=== PATIENT | female | born 1975 | race Caucasian/White ===

== ENCOUNTER 2016-08-24 07:43 | Emergency (ER) | payer OTHER ==
[~2016-08-24] VITALS: Ht 162.6 cm; Wt 64.0 kg
[~2016-08-24 07:43] MED LIST: BENZTROPINE MESY2 MG PO; BUPROPION HCL150 M2 PO; DEPAKOTE ER500 MG PO; NORCO 5/325 MG1 TAB PO; PROLIXIN PO; UNKNOWN MEDS; ZYPREXA20 MG PO
[2016-08-24 08:05] VITALS: BP 87/55
--- NOTE | 2016-08-24 08:05 | NUR ---
PATIENT PRESENTS TO ED WITH THROAT PAIN, PAIN UPON SWALLOWING X3 DAYS . PT STATES . DENIES N/V/D; SKIN IS PINK/WARM/DRY; AAOX4 WITH EVEN AND STEADY GAIT; LUNGS CLEAR BL; HR EVEN AND REGULAR; PT DENIES ANY FEVER, CP, SOB, OR COUGH AT THIS TIME; PATIENT STATES PAIN OF 8/10 AT THIS TIME; VSS; PATIENT POSITIONED FOR COMFORT; HOB ELEVATED; BEDRAILS UP X2; BED DOWN. ER MD MADE AWARE OF PT STATUS.
--- NOTE | 2016-08-24 08:13 | NUR ---
Patient ambulated to bed 4. RN evaluating patient at bedside.
[2016-08-24 08:21] VITALS: BP 121/71
--- NOTE | 2016-08-24 08:21 | NUR ---
Patient discharged with v/s stable. Written and verbal after care instructions given and explained. Patient alert, oriented and verbalized understanding of instructions. Ambulatory with steady gait. All questions addressed prior to discharge. ID band removed. Patient advised to follow up with PMD. Rx of TYLENOL/AMOXICILLIN/CHLORASEPTIC given. Patient educated on indication of medication including possible reaction and side effects. Opportunity to ask questions provided and answered.
[2016-10-15] MEDS ORDERED: BACTROBAN 2%20 MG/GM TP (11:29)
[2016-10-15] MEDS ORDERED: PROLIXIN PO (11:29)
[2016-10-15] MEDS ORDERED: A & D OINT45 GM TP (11:29)
[2016-10-15] MEDS ORDERED: HYDROCORTISONE30 GM TP (11:29)
[2016-10-15] MEDS ORDERED: HABITROL T14 MG/24 H TD (11:29)
[2016-10-15] MEDS ORDERED: APLICARE ANTIS118 M2 TP (11:29)
== END 2016-08-24 08:21 | disposition home or self-care (01) ==
LOC: MED 07:43
DX: J02.9 Acute pharyngitis, unspecified (principal); F17.210 Nicotine dependence, cigarettes, uncomplicated; Z79.899 Other long term (current) drug therapy; Z88.8 Allergy status to other drugs, medicaments and biological substances

== ENCOUNTER 2016-10-10 12:10 | Inpatient (IN) | payer OTHER ==
[~2016-10-10] VITALS: Ht 165.1 cm; Wt 63.5 kg
[~2016-10-10 12:10] MED LIST changes: +BENZ2TAB27 PO; -BENZTROPINE MESY2 MG PO; -BUPROPION HCL150 M2 PO; -DEPAKOTE ER500 MG PO; +DIVA500T1 PO; +HYDR-4446 PO; -NORCO 5/325 MG1 TAB PO; +PRO1 PO; -PROLIXIN PO; -UNKNOWN MEDS; -ZYPREXA20 MG PO
--- NOTE | 2016-10-10 12:12 | NUR ---
NIRANJAN DELANEY EVALUATING PT IN TRIAGE ROOM; PT PLACED ON 5150 HOLD BY NIRANJAN DELANEY AT THIS TIME.
[2016-10-10 12:16] VITALS: BP 100/65
--- NOTE | 2016-10-10 12:16 | NUR ---
PT AMBULATED TO BED 3 AT THIS TIME.
[2016-10-10] MEDS ORDERED: NACL 0.9% 1,000 ML IV ONE (12:20)
--- NOTE | 2016-10-10 12:39 | NUR ---
40/f to ed with c/o gen weakness x3 hours s/p being of her psych meds. pt is on hold by [facility], she states she has thoughts of suicide with no plan or attempt. pt denies n/v/d. denies pain. lungs clear bilat. hr even and regular. aaox4. vss. no signs of distress.
[2016-10-10 12:47] LABS: BASOPHILS # (AUTO) 0.3 K/uL (0.00-0.22); BASOPHILS % (AUTO) 4.3 % (0.0-2.0); EOSINOPHILS # (AUTO) 0.2 K/uL (0-0.4); EOSINOPHILS % (AUTO) 2.5 % (0.0-4.0); HEMATOCRIT 38.3 % (36-48); HEMOGLOBIN 13.3 g/dL (12.0-16.0); LYMPHOCYTES % (AUTO) 39.5 % (20.5-51.1); MEAN CORPUSCULAR HEMOGLOBIN 32 pg (27-31); MEAN CORPUSCULAR HGB CONC 35 g/dL (33-37); MEAN CORPUSCULAR VOLUME 93 fL (80-94); MONOCYTES # (AUTO) 0.5 K/uL (0.8-1.0); MONOCYTES % (AUTO) 6.3 % (1.7-9.3); NEUTROPHILS # (AUTO) 3.5 K/uL (1.8-7.7); NEUTROPHILS % (AUTO) 47.4 % (42.2-75.2); PLATELET COUNT (AUTO) 378 K/uL (140-450); RED BLOOD CELL COUNT(AUTO) 4.12 MIL/uL (4.20-5.40); RED CELL DISTRIBUTION WIDTH 12.9 % (11.6-13.7); WHITE BLOOD COUNT (AUTO) 7.5 K/uL (4.8-10.8)
[2016-10-10 12:58] LABS: AMPHETAMINE, URINE POS ng/ml (NEG <=1000); BARBITURATE, URINE NEG ng/ml (NEG <=200); BENZODIAZEPINE, URINE NEG ng/mL (NEG <=200); CANNABINOID, URINE NEG ng/mL (NEG <=50); COCAINE, URINE NEG ng/mL (NEG <=300)
[2016-10-10 12:59] LABS: OPIATE, URINE NEG ng/mL (NEG <=2000); PHENCYCLIDINE SCREEN,URINE NEG ng/mL (NEG <=25)
[2016-10-10 13:04] LABS: ALCOHOL, BLOOD < 3 mg/dL (<3); ANION GAP 9.5 (8-16); CALCIUM 8.2 mg/dL (8.5-10.1); CARBON DIOXIDE 28.4 mmol/L (21-32); CREATININE 0.8 mg/dL (0.6-1.3); POTASSIUM 3.9 mmol/L (3.5-5.1)
[2016-10-10 13:18] LABS: ALBUMIN 3.2 g/dL (3.4-5.0); THYROID STIMULATING HORMONE 0.02 uIU/mL (0.34-3.76); TOTAL BILIRUBIN 0.3 mg/dL (0.0-1.0); TOTAL PROTEIN, SERUM 6.7 g/dL (6.4-8.2)
[2016-10-10 13:34] LABS: ACETAMINOPHEN < 0.5 ug/ml (10-30); SALICYLATE 4.1 mg/dL (2.8-20.0)
--- NOTE | 2016-10-10 14:05 | NUR ---
Patient appears to be resting comfortably in bed. Vital Signs within normal limits. Respirations even and unlabored.
[2016-10-10] MEDS: NACL 0.9% 1,000 ML IV SCH (15:36)
[2016-10-10] MEDS ORDERED: MORPHINE SULFATE 2 MG/ML SYR IVP PRN (15:40)
--- NOTE | 2016-10-10 15:49 | NUR ---
PT REFUSED XRAY
[2016-10-10 16:00] VITALS: BP 117/77
--- NOTE | 2016-10-10 16:11 | NUR ---
Patient appears to be resting comfortably in bed. Vital Signs within normal limits. Respirations even and unlabored.
--- NOTE | 2016-10-10 16:22 | NUR ---
Patient will be admitted to care of DR HALL. Admited to TELE. Will go to room 122B. Belongings list completed. Report to ANISH SOLER.
[2016-10-10 16:55] LABS: INR 1.2 (0.8-1.2); PARTIAL THROMBOPLASTIN TIME 29.4 secs (22-35.6); PROTHROMBIN TIME 10.9 secs (10.8-13.4)
[2016-10-10 16:57] LABS: CHOL/HDL RATIO 3.9 (1-4.5); FREE T4 (FREE THYROXINE) 0.91 ng/dL (0.76-1.46); PHOSPHORUS 3.3 mg/dL (2.5-4.9)
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
--- NOTE | 2016-10-10 17:50 | NUR ---
PATIENT SEEN BY DR. AGGARWAL AT PT BEDSIDE. PT DENIES DISCOMFORT OR FEELINGS OF HURTING HERSELF OR OTHERS. WILL CONTINUE TO MONITOR.
--- NOTE | 2016-10-10 19:30 | NUR ---
ENDORSED PLAN OF CARE TO ANISH FARRELL AT PT BEDSIDE. PT WAS RESTING, EASILY AWOKE TO NAME, AGITATED AT THIS TIME, SITTER AT BEDSIDE. NO S/S OF ACUTE DISTRESS NOTED.
--- NOTE | 2016-10-10 19:30 | NUR ---
RECEIVED REPORT FROM MORNING NURSE AT BEDSIDE. PT IS AAOX4, NO SUICIDAL THOUGHT AT THIS TIME, BUT AGITATED, STILL REFUSED CHEST X-RAY AT THIS TIME, DENIES PAIN, NO S/S OF SOB/DISTRESS, CLEAR LUNG SOUNDS, ON ROOM AIR, SR ON MONITOR, REGULAR HR, SOFT ABDOMEN WITH ACTIVE BOWEL SOUNDS, IV TO RIGHT AC 20G RUNNING NS AT 50ML/HR, CONTINENT WITH B&B'S, AFEBRILE, SKIN INTACT, WARM AND DRY TO TOUCH, ABLE TO AMBULATE WITH STEADY GAIT, REVIEWED PLAN OF CARE WITH PT, PT VERBALIZED UNDERSTANDING. ALL SAFETY PRECAUTIONS MAINTAINED, CALL LIGHT WITHIN REACH. WILL CONTINUE TO MONITOR.
[2016-10-10 20:00] VITALS: BP 105/65
[2016-10-10] MEDS: DIVALPROEX 500 MG TABEC PO SCH (20:33)
[2016-10-10] MEDS: BENZTROPINE 1 MG TAB PO SCH (20:34)
[2016-10-10] MEDS: DOCUSATE SODIUM 100 MG GELCAP PO SCH (20:34)
[2016-10-10] MEDS: HYDROcodone/APAP 7.5/325 MG 1 TAB PO PRN (20:34)
--- NOTE | 2016-10-10 23:50 | NUR ---
REPORT GIVEN TO ANISH WELCH FOR CONTINUE OF CARE, PT IS IN STABLE CONDITION AT THIS TIME.
--- NOTE | 2016-10-11 | NUR ---
RECEIVED REPORT FROM ANISH ROSE. PT SLEEPING. PT AGITATED AND REFUSES TO HAVE VITAL SIGN TAKEN UPON WAKING UP, STATING "NO, IT'S KIND OF RUDE TO DO THAT AT 12AM." CONDITION STABLE, NO S/S OF ACUTE DISTRESS. UNABLE TO ASSESS FURTHER DUE TO PT'S REFUSAL AND AGITATION. IV ACCESS ASYMPTOMATIC, PATENT AND INTACT. ALL NEEDS MET. SAFETY MEASURES ENSURED. 1:1 SITTER WITH CLOSE MONITORING AT BEDSIDE. CALL LIGHT WITHIN REACH. WILL CONTINUE TO MONITOR.
--- NOTE | 2016-10-11 01:45 | NUR ---
PT ABLE TO AMBULATE TO THE RESTROOM INDEPENDENTLY. CONDITION STABLE. IVF INFUSING WELL. 1:1 SITTER WITH CLOSE MONITORING. SAFETY MEASURES ENSURED.
--- NOTE | 2016-10-11 02:36 | NUR ---
PT REQUESTING TO TURN OFF IV PUMP. IV SALINE LOCKED. 1:1 SITTER WITH CLOSE MONITORING MAINTAINED. SAFETY MEASURES ENSURED.
--- NOTE | 2016-10-11 04:00 | NUR ---
PT REFUSED VITAL SIGNS DESPITE EDUCATION. CONDITION STABLE. ALL NEEDS MET. 1:1 SITTER WITH CLOSE MONITORING MAINTAINED. SAFETY MEASURES ENSURED. CALL LIGHT WITHIN REACH. WILL CONTINUE TO MONITOR.
--- NOTE | 2016-10-11 06:02 | NUR ---
PT REQUESTING TO SHOWER, TOLD PT THAT MD WILL BE ASKED IN 40 MINS WHEN THEY COME IN THE MORNING. OFFERED SPONGE BATH WITH TOWELS, PT REFUSED. PT REFUSING BLOOD DRAWS DESPITE EDUCATION, STATING "YOU ALREADY GOT TOO MUCH BLOOD FROM ME. I REFUSE." PT REFUSING CXR DESPITE EDUCATION, STATING "NO. WHY CAN'T I GET WHAT I WANT." WILL FOLLOW UP AFTER ASKING PERMISSION FROM MD TO SHOWER. CONDITION STABLE. 1:1 SITTER WITH CLOSE MONITORING ENSURED. CALL LIGHT WITHIN REACH. WILL CONTINUE TO MONITOR.
--- NOTE | 2016-10-11 07:05 | NUR ---
RECEIVED PATIENT REPORT AT BEDSIDE. PATIENT AWAKE, ALERT AND ORIENTED. NO S/S OF DISTRESS NOTED. PATIENT ON ROOM AIR. NO C/O PAIN AT THIS TIME. PATIENT CALM AND COLLECTED. PATIENT ON TELE MONITORING WITH 1:1 SITTER. BED LOWERED WITH CALL LIGHT WITHIN REACH. WILL CONTINUE TO MONITOR
--- NOTE | 2016-10-11 07:39 | NUR ---
ENDORSED PLAN OF CARE TO AM NURSE. CONDITION STABLE.
[2016-10-11 08:00] VITALS: BP 89/54
--- NOTE | 2016-10-11 08:24 | NUR ---
PATIENT HAS BEEN SCREENED AND CATEGORIZED LOW NUTRITION RISK. PATIENT WILL BE SEEN WITHIN 7 DAYS OF ADMISSION. 10/17/[address]
[2016-10-11] MEDS: DOCUSATE SODIUM 100 MG GELCAP PO SCH ×2 (09:00→20:28)
[2016-10-11] MEDS: BENZTROPINE 1 MG TAB PO SCH ×2 (09:00→20:28)
[2016-10-11] MEDS: PANTOPRAZOLE 40 MG INJ VIAL IVP SCH (09:00)
--- NOTE | 2016-10-11 09:00 | NUR ---
ADMINISTERED DUE MEDS. PATIENT CALM AND COMPLIANT. NO S/S OF DISTRESS NOTED. PT WITH 1:1 SITTER
[2016-10-11] MEDS: DIVALPROEX 500 MG TABEC PO SCH ×2 (09:01→20:28)
[2016-10-11] MEDS: NICOTINE TRANSD SYS 14 MG/24 HR PATCH TD SCH (09:01)
--- NOTE | 2016-10-11 10:44 | NUR ---
PATIENT CALMLY RESTING IN BED. NO S/S OF DISTRESS NOTED. PT WITH 1:1 SITTER
[2016-10-11] MEDS: ACETAMINOPHEN 325 MG TAB PO PRN ×2 (10:58→16:37)
[2016-10-11] MEDS: NACL 0.9% 1,000 ML IV SCH (11:36)
[2016-10-11 12:00] VITALS: BP 97/61
[2016-10-11 16:00] VITALS: BP 108/68
--- NOTE | 2016-10-11 17:12 | NUR ---
PATIENT SEEN BY DR RIVERS. DR EXAMINED PATIENT'S VAGINAL CUT. ALSO PARKER OF PATIENT'S C/O ANXIETY. TO PUT ORDERS
[2016-10-11] MEDS: LORazepam 1 MG TAB PO PRN (18:18)
--- NOTE | 2016-10-11 19:15 | NUR ---
RECEIVED REPORT FROM ANISH JO AT BEDSIDE. INITIAL ASSESSMENT COMPLETED. PT AAOX4. PT LAYING IN BED WITH 1:1 SITTER. PT AMBULATES. PT 'S SKIN IS INTACT. PT HAS IV ON RIGHT AC G 20 INFUSING FLUIDS WELL. ORIENTED PT TO ROOM AND SURROUNDINGS AND USE OF CALL LIGHT. EXPLAINED PLAN OF CARE TO PT AND SHE VERBALIZES UNDERSTANDING. WILL CONTINUE TO MONITOR PT.
--- NOTE | 2016-10-11 19:23 | NUR ---
ENDORSED CONTINUITY OF CARE TO THE NIGHT NURSE. PATIENT ENDORSED IN STABLE CONDITION
[2016-10-11 20:00] VITALS: BP 105/81
--- NOTE | 2016-10-11 20:25 | NUR ---
PT COMPLAINING OF GENERALIZED PAIN 10/25. VS STABLE, WILL MEDICATE ORDERED.
[2016-10-11] MEDS: HYDROcodone/APAP 7.5/325 MG 1 TAB PO PRN (20:28)
--- NOTE | 2016-10-11 20:32 | NUR ---
PT TOLERATED 2100 MEDS WELL. CALL LIGHT WITHIN REACH.
--- NOTE | 2016-10-11 20:40 | NUR ---
FORMS BUILDER AT BEDSIDE TO DRAW LABS. PT REFUSES BLOOD DRAWS.
--- NOTE | 2016-10-11 21:40 | NUR ---
DR. DOUGLAS AWARE OF PT REFUSING BLOOD DRAWS.
--- NOTE | 2016-10-12 00:05 | NUR ---
PT REFUSED TO HAVE VITAL SIGNS CHECKED. SHE STATED SHE WANTED TO BE LEFT ALONE. WILL CONTINUE TO MONITOR PT.
--- NOTE | 2016-10-12 02:30 | NUR ---
URINE COLLECTED AND SENT TO LAB.
[2016-10-12] MEDS: NACL 0.9% 1,000 ML IV SCH (03:02)
[2016-10-12 03:35] LABS: APPEARANCE,URINE CLEAR (CLEAR); BILIRUBIN,URINE NEGATIVE (NEGATIVE); BLOOD, URINE NEGATIVE (NEGATIVE); COLOR,URINE YELLOW (YELLOW); LEUKOCYTE ESTERASE ,URINE NEGATIVE (NEGATIVE); NITRITE, URINE NEGATIVE (NEGATIVE); PROTEIN,URINE NEGATIVE (NEGATIVE); UGLUCOSE NEGATIVE (NEGATIVE); UROBILINOGEN,URINE 0.2 EU/dL (0.2 - 1)
--- NOTE | 2016-10-12 03:39 | NUR ---
PT SLEEPING; NO SIGNS OF DISTRESS/DISCOMFORT NOTED. PT HAS 1:1 SITTER.
[2016-10-12 03:53] LABS: BACTERIA,URINE OCCASSIONAL /HPF (None Seen); RBC,URINE 0-5 (RARE) /HPF (0-5); WBC,URINE 0-5 (RARE) /HPF (0-5)
--- NOTE | 2016-10-12 04:19 | NUR ---
PT STATED THAT SHE DID NOT WANT TO HAVE THE IV IN ANYMORE; I TOLD HER THAT IF SHE NEEDS TO HAVE IV ACCESS LONG SHE IS IN THE HOSPITAL. PT REFUSED AND SHE PULLED OUT IV WITH TIP INTACT. SHE STATED THAT SHE DID NOT WANT IT ANYMORE.
--- NOTE | 2016-10-12 04:35 | NUR ---
PT REFUSED TO HAVE 0400 VITAL SIGNS CHECKED. WILL CONTINUE TO MONITOR PT.
--- NOTE | 2016-10-12 07:10 | NUR ---
RECEIVED PATIENT REPORT AT BEDSIDE. PATIENT ASLEEP BUT EASILY AROUSABLE. NO S/S OF DISTRESS NOTED. NO IV LINE IN PLACE. PATIENT WITH 1:1 SITTER. PATIENT ON TELE MONITORING. BED LOWERED WITH CALL LIGHT WITHIN REACH. WILL CONTINUE TO MONITOR
[2016-10-12 08:00] VITALS: BP 89/54
[2016-10-12] MEDS: BENZTROPINE 1 MG TAB PO SCH ×2 (08:10→21:22)
[2016-10-12] MEDS: DIVALPROEX 500 MG TABEC PO SCH ×2 (08:10→21:22)
[2016-10-12] MEDS: NICOTINE TRANSD SYS 14 MG/24 HR PATCH TD SCH (08:11)
[2016-10-12] MEDS: DOCUSATE SODIUM 100 MG GELCAP PO SCH ×2 (08:12→21:22)
[2016-10-12] MEDS: PANTOPRAZOLE 40 MG INJ VIAL IVP SCH (08:22)
[2016-10-12] MEDS: VITAMIN A/VITAMIN D OINT 113 GM TUBE TP SCH (08:25)
--- NOTE | 2016-10-12 09:00 | NUR ---
ADMINISTERED DUE MEDS. PATIENT CALM AND COMPLIANT. NO S/S OF DISTRESS NOTED
[2016-10-12] MEDS: CHLORHEXADINE GLUC 2% CLOTH TP SCH (10:20)
[2016-10-12] MEDS: ACETAMINOPHEN 325 MG TAB PO PRN (12:29)
--- NOTE | 2016-10-12 14:53 | NUR ---
PATIENT READING A BOOK IN BED. PATIENT CALM. NO S/S OF DISTRESS NOTED. PATIENT WITH 1:1 SITTER
[2016-10-12 16:00] VITALS: BP 105/67
[2016-10-12] MEDS: LORazepam 1 MG TAB PO PRN (16:16)
--- NOTE | 2016-10-12 19:10 | NUR ---
RECEIVED REPORT FROM ANISH JO AT BEDSIDE. INITIAL ASSESSMENT COMPLETED. PT AAOX4. PT LAYING IN BED WITH 1:1 SITTER. PT AMBULATES. PT 'S SKIN IS INTACT. PT REFUSES TO HAVE IV ACCESS. ORIENTED PT TO ROOM AND SURROUNDINGS AND USE OF CALL LIGHT. EXPLAINED PLAN OF CARE TO PT AND SHE VERBALIZES UNDERSTANDING. WILL CONTINUE TO MONITOR PT.
--- NOTE | 2016-10-12 19:15 | NUR ---
PATIENT REPORT GIVEN AT BEDSIDE. PATIENT ENDORSED IN STABLE CONDITION
[2016-10-12 20:00] VITALS: BP 112/68
[2016-10-12] MEDS: MUPIROCIN 2% OINT 22 GM TUBE TP SCH (21:21)
--- NOTE | 2016-10-12 21:25 | NUR ---
PT TOLERATED 2100 MEDS WELL.
--- NOTE | 2016-10-12 23:52 | NUR ---
PT SLEEPING AT THIS TIME. PT REFUSED TO HAVE VS CHECKED. WITNESSED BY ARIANNA. WILL CONTINUE TO MONITOR PT.
--- NOTE | 2016-10-13 01:15 | NUR ---
PT SLEEPING AT THIS TIME. NO SIGNS OF DISTRESS NOTED. WILL CONTINUE TO MONITOR PT.
--- NOTE | 2016-10-13 03:10 | NUR ---
PT WANTS TO SLEEP AND STATED THAT SHE DOES NOT WANT TO BE BOTHERED. SHE STATED "LEAVE ME ALONE".
[2016-10-13] MEDS: NACL 0.9% 1,000 ML IV SCH ×2 (03:36→23:36)
[2016-10-13 04:00] VITALS: BP 110/68
--- NOTE | 2016-10-13 04:47 | NUR ---
PT AMBULATED TO THE RESTROOM. PT BACK IN BED NOW. WILL CONTINUE TO MONITOR PT.
--- NOTE | 2016-10-13 06:14 | NUR ---
PT STATED THAT SHE WANTS TO SLEEP. SHE TOLD STAFF TO BE QUIET. WILL CONTINUE TO MONITOR PT.
--- NOTE | 2016-10-13 07:38 | NUR ---
ENDORSED PLAN OF CARE TO DAY SHIFT NURSE. PT IN STABLE CONDITION.
--- NOTE | 2016-10-13 07:39 | NUR ---
PT AWAKE AND ALERT, NO SIGNS OF ACUTE DISTRESS, BREATHING EVEN AND UNLABORED BILATERALLY, BOWEL SOUNDS ACTIVE IN ALL 4 QUADRANTS, SKIN INTACT, AMBULATORY WITH BRP, CONTINENT TO BOWEL AND BLADDER, PT DENIES PAIN AT THIS TIME, NO IV ACCESS AT THIS TIME DUE TO PATIENT REFUSAL, BED IN LOW POSITION WITH BILATERAL HALF SIDE RAILS UP, CALL LIGHT WITHIN REACH. ORIENTED TO UNIT AND HOSPITAL, PT VERBALIZED UNDERSTANDING.
[2016-10-13 08:00] VITALS: BP 102/62
[2016-10-13] MEDS: NICOTINE TRANSD SYS 14 MG/24 HR PATCH TD SCH (08:32)
[2016-10-13] MEDS: DIVALPROEX 500 MG TABEC PO SCH ×2 (08:33→20:20)
[2016-10-13] MEDS: BENZTROPINE 1 MG TAB PO SCH ×2 (08:33→20:20)
[2016-10-13] MEDS: DOCUSATE SODIUM 100 MG GELCAP PO SCH ×2 (08:33→20:21)
[2016-10-13] MEDS: PANTOPRAZOLE 40 MG INJ VIAL IVP SCH (08:36)
[2016-10-13] MEDS: VITAMIN A/VITAMIN D OINT 113 GM TUBE TP SCH (10:47)
[2016-10-13] MEDS: MUPIROCIN 2% OINT 22 GM TUBE TP SCH ×2 (10:48→21:08)
[2016-10-13] MEDS: CHLORHEXADINE GLUC 2% CLOTH TP SCH (10:48)
[2016-10-13 12:00] VITALS: BP 98/67
--- NOTE | 2016-10-13 12:32 | NUR ---
NEW AM LAB ORDERS RECEIVED, NOTED, WILL CARRY OUT.
[2016-10-13] MEDS: ACETAMINOPHEN 325 MG TAB PO PRN ×2 (14:10→20:21)
[2016-10-13] MEDS: ONDANSETRON 4 MG/2 ML VIAL IVP PRN ×2 (14:36→19:03)
[2016-10-13 16:00] VITALS: BP 103/74
--- NOTE | 2016-10-13 19:30 | NUR ---
PT AWAKE AND ALERT, NO SIGNS OF ACUTE DISTRESS. BED IN LOW POSITION WITH CALL LIGHT WITHIN REACH. GAVE REPORT TO AFRICAN STUDIES PROFESSOR NURSE FOR CONTINUITY OF CARE.
--- NOTE | 2016-10-13 19:31 | NUR ---
RECEIVED REPORT FROM DAY RN FOR CONTINUITY OF CARE. PATIENT IS A&OX4, DISCUSSED PLAN OF CARE WITH PATIENT, ABLE TO VERBALIZE UNDERSTANDING. SHIFT ASSESSMENT DONE, VS TAKEN, STABLE. PATIENT STATES HEADACHE, WILL MEDICATE ORDERED. NO S/S OF RESPIRATORY DISTRESS NOTED. IV TO RT FA PATENT AND FLUSHED. SAFETY PRECAUTIONS ENFORCED, 1:1 SITTER AT BEDSIDE. WILL CONTINUE TO MONITOR.
[2016-10-13 20:00] VITALS: BP 118/42
[2016-10-13] MEDS: LORazepam 1 MG TAB PO PRN (21:08)
[2016-10-13] MEDS: HYDROcodone/APAP 7.5/325 MG 1 TAB PO PRN (21:53)
--- NOTE | 2016-10-13 21:53 | NUR ---
PT C/O HEADACHE UNRELIEVED BY PREVIOUS MEDICATIONS, MEDICATED PER MD ORDER. WILL CONTINUE TO MONITOR.
[2016-10-14] VITALS: BP 96/71
[2016-10-14] MEDS: ONDANSETRON 4 MG/2 ML VIAL IVP PRN ×2 (00:08→10:16)
--- NOTE | 2016-10-14 00:08 | NUR ---
VS TAKEN, STABLE. PT C/O FEELING NAUSEOUS MEDICATED PER MD ORDER. WILL CONTINUE TO MONITOR.
--- NOTE | 2016-10-14 02:05 | NUR ---
PATIENT RESTING IN BED AT THIS TIME, NO S/S OF DISTRESS NOTED. 1:1 SITTER ENFORCED. WILL CONTINUE TO MONITOR.
[2016-10-14 04:00] VITALS: BP 110/70
--- NOTE | 2016-10-14 04:00 | NUR ---
VS TAKEN, STABLE. 1:1 SITTER ENFORCED. WILL CONTINUE TO MONITOR.
--- NOTE | 2016-10-14 06:00 | NUR ---
PROVIDED PATIENT WITH SNACK. PATIENT AMBULATING IN ROOM. 1:1 SITTER ENFORCED.
[2016-10-14 06:19] LABS: BASOPHILS # (AUTO) 0.3 K/uL (0.00-0.22); BASOPHILS % (AUTO) 4.3 % (0.0-2.0); EOSINOPHILS # (AUTO) 0.3 K/uL (0-0.4); EOSINOPHILS % (AUTO) 4.8 % (0.0-4.0); LYMPHOCYTES # (AUTO) 3.5 K/uL (2.5-16.5); MEAN CORPUSCULAR HEMOGLOBIN 33 pg (27-31); MEAN CORPUSCULAR HGB CONC 34 g/dL (33-37); MEAN CORPUSCULAR VOLUME 95 fL (80-94); MONOCYTES # (AUTO) 0.6 K/uL (0.8-1.0); MONOCYTES % (AUTO) 8.8 % (1.7-9.3); NEUTROPHILS # (AUTO) 2.6 K/uL (1.8-7.7); NEUTROPHILS % (AUTO) 35.1 % (42.2-75.2); PLATELET COUNT (AUTO) 335 K/uL (140-450); RED BLOOD CELL COUNT(AUTO) 3.99 MIL/uL (4.20-5.40); WHITE BLOOD COUNT (AUTO) 7.3 K/uL (4.8-10.8)
[2016-10-14 06:31] LABS: MAGNESIUM 1.8 mg/dL (1.8-2.4); PHOSPHORUS 4.4 mg/dL (2.5-4.9)
[2016-10-14 06:38] LABS: ANION GAP 13.8 (8-16); CALCIUM 8.4 mg/dL (8.5-10.1); CARBON DIOXIDE 26.6 mmol/L (21-32); CREATININE 0.9 mg/dL (0.6-1.3); POTASSIUM 4.4 mmol/L (3.5-5.1)
--- NOTE | 2016-10-14 07:20 | NUR ---
ENDORSED PATIENT TO DAY RN FOR CONTINUITY OF CARE, IN STABLE CONDITION.
--- NOTE | 2016-10-14 07:21 | NUR ---
PT AWAKE AND ALERT, NO SIGNS OF ACUTE DISTRESS. BREATHING EVEN AND UNLABORED BILATERALLY, PT ON ROOM AIR. BOWEL SOUNDS ACTIVE IN ALL 4 QUADRANTS. SKIN INTACT. AMBULATORY WITH BRP. BOWEL AND BLADDER CONTINENT. PT DENIES PAIN. BED IN LOW POSITION WITH BILATERAL HALF SIDE RAILS UP, CALL LIGHT WITHIN REACH. REORIENTED TO UNIT AND HOSPITAL, PT VERBALIZED UNDERSTANDING.
[2016-10-14 07:47] VITALS: BP 104/61
[2016-10-14] MEDS: DIVALPROEX 500 MG TABEC PO SCH ×2 (08:27→20:51)
[2016-10-14] MEDS: BENZTROPINE 1 MG TAB PO SCH ×2 (08:27→20:50)
[2016-10-14] MEDS: NICOTINE TRANSD SYS 14 MG/24 HR PATCH TD SCH (08:27)
[2016-10-14] MEDS: PANTOPRAZOLE 40 MG INJ VIAL IVP SCH (08:28)
[2016-10-14] MEDS: VITAMIN A/VITAMIN D OINT 113 GM TUBE TP SCH (08:28)
[2016-10-14] MEDS: DOCUSATE SODIUM 100 MG GELCAP PO SCH ×2 (08:28→20:50)
[2016-10-14] MEDS: MUPIROCIN 2% OINT 22 GM TUBE TP SCH ×2 (08:29→21:00)
[2016-10-14] MEDS: HYDROcodone/APAP 7.5/325 MG 1 TAB PO PRN ×2 (10:16→20:50)
[2016-10-14] MEDS: CHLORHEXADINE GLUC 2% CLOTH TP SCH (10:17)
[2016-10-14 12:00] VITALS: BP 94/60
--- NOTE | 2016-10-14 14:00 | NUR ---
PATIENT SEEN BY ANTONIO OCONNELL, CASE MANAGEMENT.
--- NOTE | 2016-10-14 15:21 | NUR ---
PT REQUESTING A TEST, EVEN THOUGH I INFORMED HER OF NEGATIVE TEST SHE HAD IN THE ER. PT ALSO COMPLAINING OF NAUSEA, AFTER ZOFRAN IS GIVEN SHE CLAIMS TO FEEL BETTER, BUT THEN SOON AFTER WILL CLAIM THAT IT DOESN'T WORK. PT ALSO INQUIRING ABOUT PLACEMENT AND DISCHARGE, I SPOKE WITH DR PARRY AND THEN INFORMED HER THAT DR LAO'S GROUP SHOULD BE COMING BY FOR A CONSULT SOON. PT VERBALIZED UNDERSTANDING.
[2016-10-14 16:00] VITALS: BP 91/59
--- NOTE | 2016-10-14 16:00 | NUR ---
PATIENT SEEN BY DR AGGARWAL'S GROUP, NO LONGER MEETS 5150 CRITERIA, ONCE MEDICALLY CLEARED OK TO DISCHARGE, NOTED AND WILL CARRY OUT.
--- NOTE | 2016-10-14 16:15 | NUR ---
PATIENT WAS SEEN BY DR PARRY, WILL ORDER NEW NAUSEA MEDICATION PATIENT C/O ZOFRAN NOT WORKING AND NEW MEDICATION TO HELP WITH INTERMITTENT HEADACHE PT C/O NORCO NOT WORKING. PER DR PARRY PT WILL PROBABLY BE DISCHARGED TOMORROW TO [facility], . ROLLER COASTER OPERATOR IS AVAILABLE UP UNTIL 1600.
[2016-10-14] MEDS ORDERED: METOCLOPRAMIDE 10 MG/2 ML INJ VIAL IVP PRN (16:35)
--- NOTE | 2016-10-14 16:36 | NUR ---
RECEIVED NEW LAB AND MEDICATION ORDERS FROM DR PARRY, NOTED AND WILL CARRY OUT.
--- NOTE | 2016-10-14 19:30 | NUR ---
RECD. RESTING IN BED, AWAKE, A/OX3. RESPIRATION EVEN AND UNLABORED. WATCHING TV. IV OF SALINE LOCK AT THE RIGHT WRIST G 24, PATENT AND INTACT. PLAN OF CARE FOR THE SHIFT DISCUSSED. VERBALIZED UNDERSTANDING. DENIES PAIN 0/10.
[2016-10-14] MEDS: NACL 0.9% 1,000 ML IV SCH (19:36)
[2016-10-14 20:00] VITALS: BP 99/65
--- NOTE | 2016-10-14 20:00 | NUR ---
Patient's Plan of Care was discussed and reviewed with UNIFIED COMMUNICATIONS ARCHITECT: AYO BOYD
[2016-10-14] MEDS: HYDROCORTISONE 0.5% CRM 30 GM TUBE TP SCH (20:52)
--- NOTE | 2016-10-14 21:35 | NUR ---
REFUSED IV FLUIDS, STATED IRRITATING TO HER ARM.
--- NOTE | 2016-10-14 21:45 | NUR ---
TRANSFERRED TO ROOM 116.
[2016-10-14] MEDS: LORazepam 1 MG TAB PO PRN (22:25)
[2016-10-14] MEDS: ACETAMINOPHEN 325 MG TAB PO PRN (22:25)
--- NOTE | 2016-10-14 22:25 | NUR ---
WITH ANXIETY, MEDICATED WITH ATIVAN PO ORDERED.
--- NOTE | 2016-10-14 23:25 | NUR ---
NO ANXIETY NOTED, SLEEPING COMFORTABLY IN BED.
[2016-10-15] VITALS: BP 90/58
--- NOTE | 2016-10-15 03:30 | NUR ---
EAT HER HUMMUS AND CRACKERS WITH ORANGE JUICE FOR SNACK. ADVISED TO GO BACK TO SLEEP AFTER EATING.
[2016-10-15 03:47] VITALS: BP 93/66
--- NOTE | 2016-10-15 04:00 | NUR ---
NICOTINE PATCH IN THE ARM MISSING, STATED THAT IT FALL OFF.
--- NOTE | 2016-10-15 05:15 | NUR ---
REFUSED BLOOD DRAW REPORTED BY CNC OPERATOR PROGRAMMER.
[2016-10-15] MEDS: NICOTINE TRANSD SYS 14 MG/24 HR PATCH TD SCH (06:02)
--- NOTE | 2016-10-15 06:02 | NUR ---
VERY RESTLESS, WALKING AROUND. WANTS HER NICOTINE PATCH, GETS ANGRY WHEN TOLD IT IS NOT YET TIME FOR HER TO HAVE IT. CHARGE NURSE LORENA JAUREGUI, NICOTINE PATCH PLACED ON RIGHT UPPER ARM.
--- NOTE | 2016-10-15 06:38 | NUR ---
RESTING IN BED COMFORTABLY. CONDITION REMAIN STABLE. WILL ENDORSE TO AM NURSE FOR CONTINUITY OF CARE.
--- NOTE | 2016-10-15 07:25 | NUR ---
ENDORSED TO ANISH CALVO FOR CONTINUITY OF CARE.
--- NOTE | 2016-10-15 07:30 | NUR ---
REPORT RECEIVED FROM HOG SCALDER, PT WALKING AROUND IN ROOM, RESP EVEN UNLABORED ON ROOM AIR, , PLAN OF CARE REVIEWED, PT DENIES PAIN OR DISCOMFORT, REFUSES IV FLUID INFUSION, CALL THOMSON WITHIN REACH, BED LOCKED IN LOW POSITION, SIDE RAILS UP. WILL CONTINUE TO MONITOR.
[2016-10-15 08:00] VITALS: BP 106/61
[2016-10-15] MEDS: DIVALPROEX 500 MG TABEC PO SCH (08:10)
[2016-10-15] MEDS: DOCUSATE SODIUM 100 MG GELCAP PO SCH (08:10)
[2016-10-15] MEDS: PANTOPRAZOLE 40 MG INJ VIAL IVP SCH (08:10)
[2016-10-15] MEDS: HYDROcodone/APAP 7.5/325 MG 1 TAB PO PRN (08:11)
[2016-10-15] MEDS: BENZTROPINE 1 MG TAB PO SCH (08:11)
[2016-10-15] MEDS: VITAMIN A/VITAMIN D OINT 113 GM TUBE TP SCH (09:28)
[2016-10-15] MEDS: HYDROCORTISONE 0.5% CRM 30 GM TUBE TP SCH (09:28)
[2016-10-15] MEDS: MUPIROCIN 2% OINT 22 GM TUBE TP SCH (09:28)
--- NOTE | 2016-10-15 10:44 | NUR ---
PT SLEEPING QUIETLY RESP EVEN UNLABORED IN NAD, CALL THOMSON WITHIN REACH, SIDE RAILS UP, BED LOCKED IN LOW POSITION, WILL CONTINUE TO MONITOR.
[2016-10-15] MEDS ORDERED: HAB14T TD (11:29)
[2016-10-15] MEDS ORDERED: AD45 TP (11:29)
[2016-10-15] MEDS ORDERED: [UNRECOGNIZED DRUG - CODE] TP (11:29)
[2016-10-15] MEDS ORDERED: CHLO118S2 TP (11:29)
[2016-10-15] MEDS ORDERED: PRO1 PO (11:29)
[2016-10-15] MEDS ORDERED: BACTO TP (11:29)
[2016-10-15 12:00] VITALS: BP 122/58
--- NOTE | 2016-10-15 12:15 | NUR ---
DISCHARGE INSTRUCTION GIVEN AND EXPLAINED TO PT, PT VERBALIZED FULL UNDERSTANDING, PT RETURNING TO [facility], [facility] IS SENDING TRANSPORTATION ETA 20 MIN, PT WALKING AROUND IN ROOM AND HALLWAY WITH STEADY GAIT, COOPERATIVE, BOYFRIEND AT BEDSIDE, WILL DC WHEN RIDE ARRIVES.
[2016-10-15 12:23] VITALS: BP 122/58
--- NOTE | 2016-10-15 12:45 | NUR ---
NIRANJAN [facility] HERE, PT DC HOME NOW.
== END 2016-10-15 12:45 | disposition home or self-care (01) | DRG 885 ==
LOC: MED 12:10 → MTU 15:42
PROVIDERS: ADMIT Family Medicine; ATTEND Family Medicine
DX: F25.0 Schizoaffective disorder, bipolar type (principal); G92 Toxic encephalopathy; R45.851 Suicidal ideations; E44.0 Moderate protein-calorie malnutrition; F44.81 Dissociative identity disorder; F42.9 Obsessive-compulsive disorder, unspecified; F29 Unspecified psychosis not due to a substance or known physiological condition; S31.41XA Laceration without foreign body of vagina and vulva, initial encounter; F15.10 Other stimulant abuse, uncomplicated; F17.210 Nicotine dependence, cigarettes, uncomplicated; Z79.899 Other long term (current) drug therapy; Z71.3 Dietary counseling and surveillance; Z91.14 Patient's other noncompliance with medication regimen; Z88.8 Allergy status to other drugs, medicaments and biological substances; Y93.89 Activity, other specified; Y92.89 Other specified places as the place of occurrence of the external cause; Y99.8 Other external cause status; Z68.23 Body mass index [BMI] 23.0-23.9, adult
CPT/HCPCS: 36415; 80048; 80053; 80305; 81001; 82140; 82150; 83036; 83690; 83735; 83880; 84100; 84439; 84443; 84484; 85025; 85610; 85730; 87081; 93005; 96360; 99285; C9113; G0480; G0482; J2405; J2765; J7030

== ENCOUNTER 2017-07-14 09:25 | Emergency (ER) | payer OTHER ==
[~2017-07-14] VITALS: Ht 160 cm; Wt 65.8 kg
[~2017-07-14 09:25] MED LIST changes: +ACET-8386 PO; +AD45 TP; +BACTO TP; +CHLO118S2 TP; -HYDR-4446 PO; +NICO1PAT16 TD; +[UNRECOGNIZED DRUG - CODE] TP
[2017-07-14 09:28] VITALS: BP 118/76
--- NOTE | 2017-07-14 09:42 | NUR ---
PATIENT PRESENTS TO ED WITH C/O LYLE EYE PAIN/REDNESS X 5 DAYS, +DRAINAGE. DENIES FEVERS DENIES ANY VISUAL DISTURBANCES. MED HX: [facility] RX: DEPAKOTE, PROLIXINE, ZOLOFT, COGENTIN, ZYPREXA; DENIES N/V/D; SKIN IS PINK/WARM/DRY; AAOX4 WITH EVEN AND STEADY GAIT; LUNGS CLEAR BL; HR EVEN AND REGULAR; PT DENIES ANY FEVER, CP, SOB, OR COUGH AT THIS TIME; PATIENT STATES PAIN OF 8/10 AT THIS TIME; VSS; PATIENT POSITIONED FOR COMFORT; HOB ELEVATED; BEDRAILS UP X2; BED DOWN. ER MD MADE AWARE OF PT STATUS.
--- NOTE | 2017-07-14 09:45 | NUR ---
DR MOREAU EVALUATING AAO PT
[2017-07-14] MEDS ORDERED: GENTAMICIN OP 0.3% 10.5 MG/3.5 GM TUBE OP ONE (09:50)
[2017-07-14] MEDS ORDERED: IBUPROFEN 600 MG TAB PO ONE (09:50)
[2017-07-14 10:08] VITALS: BP 112/69
--- NOTE | 2017-07-14 10:08 | NUR ---
Patient discharged with v/s stable. Written and verbal after care instructions given and explained. Patient alert, oriented and verbalized understanding of instructions. Ambulatory with steady gait. All questions addressed prior to discharge. ID band removed. Patient advised to follow up with PMD. Rx of TOBRAMYCIN, IBUPROFEN given. Patient educated on indication of medication including possible reaction and side effects. Opportunity to ask questions provided and answered.
== END 2017-07-14 10:08 | disposition home or self-care (01) ==
LOC: MED 09:25
DX: H00.015 Hordeolum externum left lower eyelid (principal); H00.012 Hordeolum externum right lower eyelid; Z88.8 Allergy status to other drugs, medicaments and biological substances
CPT/HCPCS: 99283

== ENCOUNTER 2017-12-25 16:21 | Inpatient (IN) | payer OTHER ==
[~2017-12-25] VITALS: Ht 170.2 cm; Wt 61.2 kg
[2017-12-25 16:22] VITALS: BP 108/76
[2017-12-25] MEDS ORDERED: NACL 0.9% 1,000 ML IV ONE (16:39)
[2017-12-25] MEDS ORDERED: diphenhydrAMINE 50 MG/ML VIAL IVP ONE (16:40)
[2017-12-25] MEDS ORDERED: LORazepam 2 MG/ML VIAL IVP ONE (16:40)
[2017-12-25 17:36] LABS: BASOPHILS # (AUTO) 0.1 K/uL (0.00-0.22); BASOPHILS % (AUTO) 0.9 % (0.0-2.0); EOSINOPHILS # (AUTO) 0.1 K/uL (0-0.4); EOSINOPHILS % (AUTO) 0.8 % (0.0-4.0); HEMATOCRIT 38.8 % (36-48); LYMPHOCYTES # (AUTO) 2.9 K/uL (2.5-16.5); LYMPHOCYTES % (AUTO) 32.3 % (20.5-51.1); MEAN CORPUSCULAR HEMOGLOBIN 31 pg (27-31); MEAN CORPUSCULAR HGB CONC 34 g/dL (33-37); MEAN CORPUSCULAR VOLUME 93.4 fL (80-94); MONOCYTES # (AUTO) 1.2 K/uL (0.8-1.0); NEUTROPHILS # (AUTO) 4.7 K/uL (1.8-7.7); PLATELET COUNT (AUTO) 310 K/uL (140-450); RED BLOOD CELL COUNT(AUTO) 4.15 MIL/uL (4.20-5.40); WHITE BLOOD COUNT (AUTO) 8.9 K/uL (4.8-10.8)
[2017-12-25 17:57] LABS: BARBITURATE, URINE NEG. ng/ml (NEG <=200); BENZODIAZEPINE, URINE NEG. ng/mL (NEG <=200); CANNABINOID, URINE NEG. ng/mL (NEG <=50); COCAINE, URINE NEG. ng/mL (NEG <=300); OPIATE, URINE NEG. ng/mL (NEG <=2000); PHENCYCLIDINE SCREEN,URINE NEG. ng/mL (NEG <=25)
[2017-12-25 18:00] LABS: ALBUMIN 4.3 g/dL (3.4-5.0); ANION GAP 13.6 (8-16); ASPARTATE AMINOTRANSFERASE 22 U/L (15-37); CARBON DIOXIDE 23.5 mmol/L (21-32); CHLORIDE 98 mmol/L (98-107); CREATININE 0.8 mg/dL (0.6-1.3); GFR ARICAN-AMERICAN 101 mL/min (>90); GLUCOSE 111 mg/dL (74-106); POTASSIUM 3.1 mmol/L (3.5-5.1); SODIUM SERUM 132 mmol/L (136-145); TOTAL BILIRUBIN 0.6 mg/dL (0.0-1.0); UREA NITROGEN, BLOOD 17 mg/dL (7-18)
[2017-12-25 18:05] LABS: LEUKOCYTE ESTERASE ,URINE NEGATIVE (NEGATIVE); NITRITE, URINE NEGATIVE (NEGATIVE); UGLUCOSE NEGATIVE (NEGATIVE)
[2017-12-25 18:06] LABS: BLOOD, URINE 3+ (NEGATIVE); COLOR,URINE YELLOW (YELLOW)
[2017-12-25 18:07] LABS: APPEARANCE,URINE SLIGHTLY HAZY (CLEAR); BILIRUBIN,URINE 1+ (NEGATIVE)
[2017-12-25 18:10] LABS: RBC,URINE 11-20 (MOD) /HPF (0-5); WBC,URINE 0-5 (RARE) /HPF (0-5)
[2017-12-25] MEDS ORDERED: LORazepam 2 MG/ML VIAL IM ONE (18:35)
[2017-12-25] MEDS ORDERED: diphenhydrAMINE 50 MG/ML VIAL IM ONE (18:35)
[2017-12-25] MEDS ORDERED: ONDANSETRON 4 MG/2 ML VIAL IVP PRN (20:15)
[2017-12-25] MEDS ORDERED: HYDROcodone/APAP 7.5/325 MG 1 TAB PO PRN (20:15)
[2017-12-25] MEDS ORDERED: ACETAMINOPHEN 325 MG TAB PO PRN (20:15)
[2017-12-25 20:55] VITALS: BP 90/51
[2017-12-25 21:29] LABS: PROTHROMBIN TIME 10.4 secs (10.8-13.4)
[2017-12-25 21:35] LABS: FREE T4 (FREE THYROXINE) 1.33 ng/dL (0.76-1.46); MAGNESIUM 2.1 mg/dL (1.8-2.4); PHOSPHORUS 2.7 mg/dL (2.5-4.9); THYROID STIMULATING HORMONE 3.47 uIU/mL (0.34-3.74)
[2017-12-25] MEDS: NACL 0.9% 1,000 ML IV SCH (21:56)
[2017-12-25] MEDS ORDERED: POTASSIUM CHLORIDE 10 MEQ TABER PO SCH (23:00)
[2017-12-26] VITALS: BP 92/56
[2017-12-26 07:13] LABS: BASOPHILS % (AUTO) 0.7 % (0.0-2.0); EOSINOPHILS # (AUTO) 0.3 K/uL (0-0.4); EOSINOPHILS % (AUTO) 6.1 % (0.0-4.0); HEMATOCRIT 35.4 % (36-48); LYMPHOCYTES # (AUTO) 2.1 K/uL (2.5-16.5); LYMPHOCYTES % (AUTO) 42.5 % (20.5-51.1); MEAN CORPUSCULAR HEMOGLOBIN 32 pg (27-31); MEAN CORPUSCULAR HGB CONC 34 g/dL (33-37); MEAN CORPUSCULAR VOLUME 93.9 fL (80-94); MONOCYTES # (AUTO) 0.7 K/uL (0.8-1.0); MONOCYTES % (AUTO) 14.6 % (1.7-9.3); NEUTROPHILS # (AUTO) 1.8 K/uL (1.8-7.7); NEUTROPHILS % (AUTO) 36.1 % (42.2-75.2); PLATELET COUNT (AUTO) 272 K/uL (140-450); RED BLOOD CELL COUNT(AUTO) 3.77 MIL/uL (4.20-5.40); RED CELL DISTRIBUTION WIDTH 12.9 % (11.6-13.7)
[2017-12-26 08:00] VITALS: BP 137/55
[2017-12-26 08:18] LABS: MAGNESIUM 2.2 mg/dL (1.8-2.4); PHOSPHORUS 3.2 mg/dL (2.5-4.9)
[2017-12-26] MEDS ORDERED: NICOTINE TRANSD SYS 14 MG/24 HR PATCH TD SCH (09:00)
[2017-12-26] MEDS ORDERED: BENZTROPINE 1 MG TAB PO SCH (09:00)
[2017-12-26] MEDS ORDERED: DIVALPROEX 500 MG TABER PO SCH ×2 (09:00→21:00)
[2017-12-26 16:00] VITALS: BP 103/61
[2017-12-26] MEDS: NACL 0.9% 1,000 ML IV SCH (16:12)
== END 2017-12-26 17:45 | disposition left against medical advice (07) | DRG 917 ==
LOC: MED 16:21 → MTU 20:12
PROVIDERS: ADMIT Family Medicine; ATTEND Family Medicine
DX: T43.621A Poisoning by amphetamines, accidental (unintentional), initial encounter (principal); G92 Toxic encephalopathy; E87.1 Hypo-osmolality and hyponatremia; F20.9 Schizophrenia, unspecified; F15.129 Other stimulant abuse with intoxication, unspecified; E87.6 Hypokalemia; Z53.21 Procedure and treatment not carried out due to patient leaving prior to being seen by health care provider; F17.210 Nicotine dependence, cigarettes, uncomplicated; R73.9 Hyperglycemia, unspecified; F31.9 Bipolar disorder, unspecified; R80.9 Proteinuria, unspecified; Z88.8 Allergy status to other drugs, medicaments and biological substances; Y92.89 Other specified places as the place of occurrence of the external cause; Z71.51 Drug abuse counseling and surveillance of drug abuser
CPT/HCPCS: 36415; 71045; 80053; 80305; 81001; 82140; 82150; 83036; 83690; 83735; 83880; 84100; 84439; 84443; 84484; 85025; 85610; 85730; 87081; 93005; 96372; 99285; G0482; J1200; J2060; J7030; Q0092

== ENCOUNTER 2018-04-28 10:00 | Inpatient (IN) | payer OTHER ==
[~2018-04-28] VITALS: Ht 160 cm; Wt 42.6 kg
[2018-04-28 10:05] VITALS: BP 101/63
[2018-04-28] MEDS ORDERED: LORazepam 2 MG/ML VIAL IM ONE (12:00)
[2018-04-28 12:03] LABS: BASOPHILS # (AUTO) 0.1 K/uL (0.00-0.22); EOSINOPHILS # (AUTO) 0.2 K/uL (0-0.4); EOSINOPHILS % (AUTO) 1.2 % (0.0-4.0); HEMATOCRIT 37.5 % (36-48); HEMOGLOBIN 12.3 g/dL (12.0-16.0); LYMPHOCYTES # (AUTO) 2.8 K/uL (2.5-16.5); LYMPHOCYTES % (AUTO) 21.6 % (20.5-51.1); MEAN CORPUSCULAR HEMOGLOBIN 31 pg (27-31); MEAN CORPUSCULAR HGB CONC 33 g/dL (33-37); MEAN CORPUSCULAR VOLUME 92.8 fL (80-94); MONOCYTES % (AUTO) 7.8 % (1.7-9.3); NEUTROPHILS # (AUTO) 8.8 K/uL (1.8-7.7); NEUTROPHILS % (AUTO) 68.4 % (42.2-75.2); PLATELET COUNT (AUTO) 469 K/uL (140-450); RED BLOOD CELL COUNT(AUTO) 4.03 MIL/uL (4.20-5.40); RED CELL DISTRIBUTION WIDTH 13.2 % (11.6-13.7); WHITE BLOOD COUNT (AUTO) 12.9 K/uL (4.8-10.8)
[2018-04-28] MEDS ORDERED: LORazepam 2 MG/ML VIAL ONE (12:06)
[2018-04-28 12:36] LABS: CREATININE 0.7 mg/dL (0.6-1.3); SALICYLATE < 2.8 mg/dL (2.8-20.0)
[2018-04-28 12:39] LABS: ALBUMIN 3.3 g/dL (3.4-5.0); TOTAL BILIRUBIN 0.3 mg/dL (0.0-1.0)
[2018-04-28 12:40] LABS: CREATINE KINASE MB 7.8 ng/mL (0-3.6)
[2018-04-28 13:23] LABS: APPEARANCE,URINE CLEAR (CLEAR); BILIRUBIN,URINE NEGATIVE (NEGATIVE); BLOOD, URINE TRACE-I (NEGATIVE); COLOR,URINE YELLOW (YELLOW); LEUKOCYTE ESTERASE ,URINE NEGATIVE (NEGATIVE); NITRITE, URINE NEGATIVE (NEGATIVE); UGLUCOSE NEGATIVE (NEGATIVE)
[2018-04-28 13:37] LABS: BARBITURATE, URINE NEG. ng/ml (NEG <=200); BENZODIAZEPINE, URINE NEG. ng/mL (NEG <=200); CANNABINOID, URINE NEG. ng/mL (NEG <=50); COCAINE, URINE NEG. ng/mL (NEG <=300); OPIATE, URINE NEG. ng/mL (NEG <=2000); PHENCYCLIDINE SCREEN,URINE NEG. ng/mL (NEG <=25)
[2018-04-28] MEDS ORDERED: NACL 0.9% 1,000 ML IV SCH (13:53)
[2018-04-28] MEDS ORDERED: DOCUSATE SODIUM 100 MG GELCAP PO PRN (13:55)
[2018-04-28] MEDS ORDERED: LORazepam 2 MG/ML VIAL IM/IVP PRN (13:55)
[2018-04-28] MEDS ORDERED: ACETAMINOPHEN 325 MG TAB PO PRN (13:55)
[2018-04-28] MEDS ORDERED: ONDANSETRON 4 MG/2 ML VIAL IM/IVP PRN (13:55)
[2018-04-28] MEDS ORDERED: HYDROcodone/APAP 5/325 MG 1 TAB TAB PO PRN (13:55)
[2018-04-28 14:14] LABS: RBC,URINE 0-5 (RARE) /HPF (0-5); WBC,URINE 0-5 (RARE) /HPF (0-5)
[2018-04-28 16:00] VITALS: BP 109/76
[2018-04-28 16:46] LABS: MAGNESIUM 1.9 mg/dL (1.8-2.4); PHOSPHORUS 3.2 mg/dL (2.5-4.9); THYROID STIMULATING HORMONE 1.12 uIU/mL (0.34-3.74)
[2018-04-28 16:57] LABS: PROTHROMBIN TIME 9.5 secs (10.8-13.4)
[2018-04-28] MEDS ORDERED: INFLUENZA VIRUS VACCINE QUAD 0.5 ML SYR IMVAC PRN (19:05)
[2018-04-28 20:00] VITALS: BP 110/63
[2018-04-29] VITALS: BP 108/56
[2018-04-29 08:00] VITALS: BP 115/82
[2018-04-29] MEDS: DEXT 5% / NACL 0.45% 1,000 ML IV SCH (13:40)
[2018-04-30] MEDS: DEXT 5% / NACL 0.45% 1,000 ML IV SCH ×2 (00:45→17:25)
[2018-04-30 06:48] LABS: RED BLOOD CELL COUNT(AUTO) 3.73 MIL/uL (4.20-5.40); WHITE BLOOD COUNT (AUTO) 5.3 K/uL (4.8-10.8)
[2018-04-30 06:49] LABS: BASOPHILS # (AUTO) 0.1 K/uL (0.00-0.22); BASOPHILS % (AUTO) 1.6 % (0.0-2.0); EOSINOPHILS # (AUTO) 0.1 K/uL (0-0.4); EOSINOPHILS % (AUTO) 2.6 % (0.0-4.0); HEMATOCRIT 34.7 % (36-48); HEMOGLOBIN 11.3 g/dL (12.0-16.0); LYMPHOCYTES # (AUTO) 1.8 K/uL (2.5-16.5); LYMPHOCYTES % (AUTO) 34.5 % (20.5-51.1); MEAN CORPUSCULAR HEMOGLOBIN 30 pg (27-31); MEAN CORPUSCULAR HGB CONC 33 g/dL (33-37); MONOCYTES # (AUTO) 0.7 K/uL (0.8-1.0); MONOCYTES % (AUTO) 12.8 % (1.7-9.3); NEUTROPHILS # (AUTO) 2.6 K/uL (1.8-7.7); NEUTROPHILS % (AUTO) 48.5 % (42.2-75.2); PLATELET COUNT (AUTO) 433 K/uL (140-450); RED CELL DISTRIBUTION WIDTH 13.6 % (11.6-13.7)
[2018-04-30 07:08] LABS: CARBON DIOXIDE 25.3 mmol/L (21-32); CREATININE 0.6 mg/dL (0.6-1.3); POTASSIUM 4.3 mmol/L (3.5-5.1)
[2018-04-30 07:26] LABS: MAGNESIUM 1.8 mg/dL (1.8-2.4); PHOSPHORUS 2.4 mg/dL (2.5-4.9)
[2018-04-30 08:00] VITALS: BP 100/55
[2018-04-30] MEDS ORDERED: OLANZapine 5 MG TAB PO PRN (08:15)
[2018-04-30] MEDS ORDERED: DIVALPROEX 500 MG TABEC PO SCH ×2 (11:30→21:00)
[2018-04-30] MEDS ORDERED: SODIUM PHOS / POTASSIUM PHOS 1 PKT PDR PO SCH ×2 (13:00→18:00)
[2018-04-30 20:00] VITALS: BP 107/61
== END 2018-04-30 21:35 | disposition left against medical advice (07) | DRG 917 ==
LOC: MED 10:00 → MTU 13:53
PROVIDERS: ADMIT General Practice; ATTEND General Practice
PROC: 3E0234Z Introduction of Serum, Toxoid and Vaccine into Muscle, Percutaneous Approach (ICD-10-PCS; principal; 2018-04-29)
DX: T43.621A Poisoning by amphetamines, accidental (unintentional), initial encounter (principal); G92 Toxic encephalopathy; N17.0 Acute kidney failure with tubular necrosis; E44.1 Mild protein-calorie malnutrition; Z68.1 Body mass index [BMI] 19.9 or less, adult; F20.9 Schizophrenia, unspecified; F31.9 Bipolar disorder, unspecified; S81.812A Laceration without foreign body, left lower leg, initial encounter; F15.99 Other stimulant use, unspecified with unspecified stimulant-induced disorder; D72.829 Elevated white blood cell count, unspecified; Z53.21 Procedure and treatment not carried out due to patient leaving prior to being seen by health care provider; J45.909 Unspecified asthma, uncomplicated; E86.0 Dehydration; F43.9 Reaction to severe stress, unspecified; E83.39 Other disorders of phosphorus metabolism; X58.XXXA Exposure to other specified factors, initial encounter; Z23 Encounter for immunization; Z79.899 Other long term (current) drug therapy; Y92.89 Other specified places as the place of occurrence of the external cause; Z91.14 Patient's other noncompliance with medication regimen; Z71.3 Dietary counseling and surveillance; Z90.49 Acquired absence of other specified parts of digestive tract; Z88.8 Allergy status to other drugs, medicaments and biological substances; Y93.89 Activity, other specified; Y99.8 Other external cause status
CPT/HCPCS: 36415; 71045; 73590; 80048; 80053; 80305; 81001; 82550; 82553; 83036; 83690; 83735; 83880; 84100; 84134; 84443; 84484; 84702; 85025; 85610; 85730; 87081; 90715; 93005; 96372; 99285; G0480; G0482; J2060; J7030; Q0092